=== PATIENT | female | born 1935 | race Caucasian/White ===

== ENCOUNTER 2016-08-25 14:25 | Outpatient (CLI) | payer MEDICARE, OTHER | END 2016-08-25 14:26 | disposition critical access hospital (66) | DX: M25.552 Pain in left hip (principal); M25.562 Pain in left knee; W18.39XA Other fall on same level, initial encounter; Y93.01 Activity, walking, marching and hiking; Y92.480 Sidewalk as the place of occurrence of the external cause | CPT/HCPCS: A0425; A0429 ==

== ENCOUNTER 2016-08-25 14:55 | Inpatient (IN) | payer MEDICARE, OTHER ==
[2016-08-25] MEDS ORDERED: ACETAMINOPHEN 325 MG TABLET PO STA (15:02)
[2016-08-25] MEDS ORDERED: ACETAMINOPHEN 1,000 MG/100 ML 100 ML IV STA (15:05)
[2016-08-25] MEDS ORDERED: ACETAMINOPHEN 325 MG TABLET PO ONE (15:05)
[2016-08-25] MEDS ORDERED: ACETAMINOPHEN 1,000 MG/100 ML 100 ML IV ONE (15:09)
[2016-08-25] MEDS ORDERED: LACTATED RINGERS 1,000 ML IV ONE ×2 (18:03→19:18)
[2016-08-25] MEDS ORDERED: BUPIVACAINE 0.25%-EPI 1:200000 PF 30 ML VIAL SUBQ ONE ×2 (18:54)
[2016-08-25] MEDS ORDERED: LIDOCAINE-MPF 2% 5 ML VIAL IM ONE (19:03)
[2016-08-25] MEDS ORDERED: fentaNYL 100 MCG/2 ML VIAL IVP ONE (19:03)
[2016-08-25] MEDS ORDERED: PHENYLEPHRINE 10 MG/ML VIAL IV ONE (19:03)
[2016-08-25] MEDS ORDERED: PROPOFOL 200 MG/20 ML VIAL IVP ONE (19:03)
[2016-08-25] MEDS ORDERED: ACETAMINOPHEN 1,000 MG/100 ML VIAL IV ONE (19:03)
[2016-08-25] MEDS ORDERED: ceFAZolin 1 GM VIAL IV ONE (19:03)
[2016-08-25] MEDS ORDERED: MIDAZOLAM 2 MG/2 ML VIAL IVP ONE (19:03)
[2016-08-25] MEDS ORDERED: DEXAMETHASONE 4 MG/ML VIAL IVP ONE (19:03)
[2016-08-25] MEDS ORDERED: ONDANSETRON 4 MG/2 ML VIAL IVP ONE (19:03)
[2016-08-25] MEDS ORDERED: ACETAMINOPHEN 1,000 MG/100 ML 100 ML IV PRN (19:54)
[2016-08-25] MEDS ORDERED: MORPHINE 2 MG/ML SYRINGE IVP PRN (19:54)
[2016-08-25] MEDS ORDERED: SODIUM CHLORIDE FLUSH 0.9% 10 ML SYRINGE IVP PRN (19:54)
[2016-08-25] MEDS ORDERED: PROCHLORPERAZINE 10 MG/2 ML VIAL IVP PRN (19:54)
[2016-08-25] MEDS ORDERED: ONDANSETRON 4 MG/2 ML VIAL IVP PRN (19:54)
[2016-08-25] MEDS: SODIUM CHLORIDE 0.9% 1,000 ML IV SCH (20:45)
[2016-08-25] MEDS: NS W/20 MEQ KCL 1,000 ML IV SCH (20:45)
[2016-08-25] MEDS: SODIUM CHLORIDE FLUSH 0.9% 10 ML SYRINGE IVP SCH (20:46)
[2016-08-25] MEDS: ceFAZolin 2 GM/50 ML 50 ML IV SCH (20:55)
[2016-08-25] MEDS: oxyCOD/ACETAMIN 5 MG/325 MG TABLET PO PRN (21:28)
[2016-08-25] MEDS: DOCUSATE SODIUM 100 MG CAPSULE PO PRN (21:29)
[2016-08-26] MEDS: ceFAZolin 2 GM/50 ML 50 ML IV SCH (04:10)
[2016-08-26] MEDS: SODIUM CHLORIDE 0.9% 1,000 ML IV SCH (06:09)
[2016-08-26] MEDS: SODIUM CHLORIDE FLUSH 0.9% 10 ML SYRINGE IVP SCH ×3 (06:09→21:21)
[2016-08-26] MEDS: NS W/20 MEQ KCL 1,000 ML IV SCH ×2 (07:02→09:32)
[2016-08-26] MEDS: ASPIRIN 325 MG TABLET PO SCH ×2 (08:06→18:10)
[2016-08-26] MEDS: oxyCOD/ACETAMIN 5 MG/325 MG TABLET PO PRN ×3 (08:06→21:21)
[2016-08-26] MEDS: TRIAMT/HCTZ 37.5 MG/25 MG CAPSULE PO SCH (09:31)
[2016-08-26] MEDS: amLODIPine 5 MG TABLET PO SCH (09:31)
[2016-08-27] MEDS: ACETAMINOPHEN 325 MG TABLET PO PRN (03:50)
[2016-08-27] MEDS: SODIUM CHLORIDE FLUSH 0.9% 10 ML SYRINGE IVP SCH ×3 (06:12→22:44)
[2016-08-27] MEDS: ASPIRIN 325 MG TABLET PO SCH ×2 (08:14→17:28)
[2016-08-27] MEDS: oxyCOD/ACETAMIN 5 MG/325 MG TABLET PO PRN ×2 (08:15→20:40)
[2016-08-27] MEDS: TRIAMT/HCTZ 37.5 MG/25 MG CAPSULE PO SCH (08:15)
[2016-08-27] MEDS: amLODIPine 5 MG TABLET PO SCH (08:15)
[2016-08-27] MEDS: DOCUSATE SODIUM 100 MG CAPSULE PO PRN (08:16)
[2016-08-27] MEDS: SENNA 8.6 MG TABLET PO PRN (08:16)
[2016-08-27] MEDS: POLYETHYLENE GLYCOL 3350 17 GM PACKET PO SCH (21:27)
[2016-08-28] MEDS: oxyCOD/ACETAMIN 5 MG/325 MG TABLET PO PRN ×3 (04:24→21:35)
[2016-08-28] MEDS: SODIUM CHLORIDE FLUSH 0.9% 10 ML SYRINGE IVP SCH ×3 (06:23→20:36)
[2016-08-28] MEDS: POLYETHYLENE GLYCOL 3350 17 GM PACKET PO SCH (07:44)
[2016-08-28] MEDS: ASPIRIN 325 MG TABLET PO SCH ×2 (07:45→16:51)
[2016-08-28] MEDS: TRIAMT/HCTZ 37.5 MG/25 MG CAPSULE PO SCH (07:46)
[2016-08-28] MEDS: amLODIPine 5 MG TABLET PO SCH (07:46)
[2016-08-28] MEDS: SENNA 8.6 MG TABLET PO PRN ×2 (09:52→20:36)
[2016-08-28] MEDS: DOCUSATE SODIUM 100 MG CAPSULE PO PRN ×2 (09:52→20:36)
[2016-08-28] MEDS: ACETAMINOPHEN 325 MG TABLET PO PRN (12:12)
[2016-08-28] MEDS: LIDOCAINE PATCH 5% TOP PRN (16:51)
[2016-08-29] MEDS: oxyCOD/ACETAMIN 5 MG/325 MG TABLET PO PRN ×3 (05:08→14:37)
[2016-08-29] MEDS: SODIUM CHLORIDE FLUSH 0.9% 10 ML SYRINGE IVP SCH ×2 (06:26→14:38)
[2016-08-29] MEDS: ASPIRIN 325 MG TABLET PO SCH (08:42)
[2016-08-29] MEDS: POLYETHYLENE GLYCOL 3350 17 GM PACKET PO SCH (08:42)
[2016-08-29] MEDS: TRIAMT/HCTZ 37.5 MG/25 MG CAPSULE PO SCH (08:43)
[2016-08-29] MEDS: amLODIPine 5 MG TABLET PO SCH (08:45)
[2016-08-29] MEDS: LIDOCAINE PATCH 5% TOP PRN (08:57)
== END 2016-08-29 15:34 | DRG 482 ==
PROC: 0QS734Z Reposition Left Upper Femur with Internal Fixation Device, Percutaneous Approach (ICD-10-PCS; principal; 2016-08-25 18:00)
DX: S72.012A Unspecified intracapsular fracture of left femur, initial encounter for closed fracture (principal); W18.39XA Other fall on same level, initial encounter; Y92.480 Sidewalk as the place of occurrence of the external cause; R94.31 Abnormal electrocardiogram [ECG] [EKG]; W18.30XA Fall on same level, unspecified, initial encounter; I10 Essential (primary) hypertension

== ENCOUNTER 2018-02-06 11:40 | Emergency (ER) | payer MEDICARE, OTHER ==
[2018-02-06 12:10] VITALS: BP 129/73
== END 2018-02-06 13:18 | disposition left against medical advice (07) ==
LOC: ED 11:40
DX: Z53.21 Procedure and treatment not carried out due to patient leaving prior to being seen by health care provider (principal)

== ENCOUNTER 2018-06-25 18:13 | Outpatient (CLI) | payer MEDICARE, OTHER | END 2018-06-25 18:14 | disposition EMS.NT | LOC: EMS 18:13 | PROVIDERS: ATTEND Surgery | DX: M25.551 Pain in right hip (principal) ==

== ENCOUNTER 2018-06-26 10:34 | Emergency (ER) | payer MEDICARE, OTHER ==
[2018-06-26 11:14] LABS: BASOPHILS # (AUTO) 0.2 10^3/uL (0.0-0.1); BASOPHILS % (AUTO) 1.6 %; EOSINOPHILS % (AUTO) 0.3 %; LYMPHOCYTES # (AUTO) 0.7 10^3/uL (1.5-3.5); LYMPHOCYTES % (AUTO) 6.4 %; MEAN CORPUSCULAR HEMOGLOBIN 33.3 pg (27.0-31.0); MEAN CORPUSCULAR HGB CONC 36.1 g/dL (32.0-36.0); MEAN CORPUSCULAR VOLUME 92.2 fL (81.0-99.0); MEAN PLATELET VOLUME 6.6 fL (7.9-10.8); MONOCYTES # (AUTO) 1.2 10^3/uL (0.0-1.0); MONOCYTES % (AUTO) 10.9 %; NEUTROPHILS % (AUTO) 80.8 %; PLT - PLATELET COUNT 216 10^3/uL (130-450); RED BLOOD COUNT 5.11 10^6/uL (4.20-5.40); RED CELL DISTRIBUTION WIDTH 14.1 % (12.0-15.0); WHITE BLOOD COUNT 11.1 x10^3/uL (4.8-10.8)
[2018-06-26 11:31] LABS: CREATINE KINASE MB 11.4 ng/mL (0.6-6.3)
[2018-06-26 11:33] LABS: ACETAMINOPHEN < 10 ug/mL (10-30); ALBUMIN 3.7 g/dL (3.2-5.5); ALBUMIN/GLOBULIN RATIO 1.1 (1.0-2.2); ALKALINE PHOSPHATASE 67 IU/L (42-121); ALT ALANINE AMINOTRANSFERASE 24 IU/L (10-60); AST ASPARTATE AMINOTRANSFERASE 60 IU/L (10-42); BILIRUBIN,TOTAL 3.5 mg/dL (0.2-1.0); BUN - BLOOD UREA NITROGEN 27 mg/dL (6-20); CALCIUM 9.1 mg/dL (8.5-10.3); CARBON DIOXIDE - CO2 28 mmol/L (21-32); CHLORIDE 96 mmol/L (101-111); CREATININE 1.1 mg/dL (0.4-1.0); GFR - MDRD 48 (>89); GLUCOSE 90 mg/dL (70-100); LIPASE 30 U/L (22-51); SALICYLATE < 6.0 mg/dL; SODIUM 136 mmol/L (135-145); TOTAL PROTEIN 7.1 g/dL (6.7-8.2)
[2018-06-26 11:35] LABS: TROPONIN I 0.52 ng/mL (<0.49)
--- NOTE | 2018-06-26 11:43 | XRAY Report ---
Reason: fall, injury Procedure Date: 06/26/2018 Accession Number: [id number] / [id number] Procedure: XR - Pelvis 1 View CPT Code: FULL RESULT: EXAM: PELVIS RADIOGRAPHY EXAM DATE: 06/26/2018 11:27 AM. CLINICAL HISTORY: Fall, injury. COMPARISON: HIP 2 VIEW LT 10/11/2016 10:51 AM HIP 1 VIEW LT 08/25/2016 3:36 PM HIP 2 VIEW LT 09/12/2016 10:33 AM PELVIS 1 VIEW 12/20/2014 3:05 PM. TECHNIQUE: 1 view. FINDINGS: Bones: Diffusely demineralized. There are 3 lag screws in the left proximal femur, as seen on the prior exam. There is a healed left subcapital femoral neck fracture. There is no cortical or at the superior margin of the body of the right pubic symphysis, not seen on prior exams. This raises the possibility of an acute nondisplaced fracture of the right pubic bone. The remainder of the bones appear intact. No bone lesions. Joints: There are mild degenerative changes of the bilateral hips, bilateral sacroiliac joints, and pubic symphysis. Soft Tissues: There are surgical clips in the left side of the pelvis. No soft tissue swelling. IMPRESSION: 1. Findings suspicious for an acute nondisplaced fracture of the right pubic bone. 2. Evidence of prior left subcapital femoral neck fracture post ORIF. 3. Bones are diffusely demineralized. 4. Mild degenerative changes of the bilateral hips, sacroiliac joints, and pubic symphysis. Note: Osteopenia can limit detection of trabecular fracture. RADIA
--- NOTE | 2018-06-26 11:50 | CT Report ---
Reason: fall, ams Procedure Date: 06/26/2018 Accession Number: [id number] / [id number] Procedure: CT - Head W/O CPT Code: FULL RESULT: EXAM: CT HEAD EXAM DATE: 06/26/2018 11:36 AM. CLINICAL HISTORY: Fall, altered mental status. COMPARISON: CERVICAL SPINE W/O 06/26/2018 11:27 AM. TECHNIQUE: Multiaxial CT images were obtained from the foramen magnum to the vertex. Reformats: Sagittal and coronal. IV contrast: None. In accordance with CT protocol optimization, one or more of the following dose reduction techniques were utilized for this exam: automated exposure control, adjustment of mA and/or KV based on patient size, or use of iterative reconstructive technique. FINDINGS: Parenchyma: No intraparenchymal hemorrhage. No evidence of mass, midline shift, or CT findings of acute infarction. Castro-white differentiation is distinct. Diffuse chronic microangiopathic white matter changes are evident. Extraaxial Spaces: Normal for age. No subdural or epidural collections identified. Ventricles: The ventricles and cortical sulci are enlarged, consistent with age-related tissue loss. Sinuses and orbits: Imaged paranasal sinuses, orbits, and mastoids show no significant abnormality. Bones: No evidence of fracture or calvarial defect. Other: None. IMPRESSION: Generalized age-related cortical atrophic changes without evidence of acute intracranial abnormality. No intracranial hemorrhage. RAD[facility]
[2018-06-26 11:51] LABS: MUDS CUTOFF CONCENTRATIONS CUTOFF CONC BELOW:
[2018-06-26 11:52] LABS: PLATELET ESTIMATE, MANUAL NORMAL (130-450,000) (NORMAL); PLATELET MORPHOLOGY NORMAL APPEARANCE (NORMAL); RBC MORPHOLOGY (MULTIPLE) NORMAL APPEARANCE (NORMAL)
[2018-06-26 11:53] LABS: DIFFERENTIAL COMMENT MANUAL=AUTO DIFF
--- NOTE | 2018-06-26 11:53 | XRAY Report ---
Reason: fall, ams Procedure Date: 06/26/2018 Accession Number: [id number] / [id number] Procedure: XR - Chest 2 View X-Ray CPT Code: 86702 FULL RESULT: EXAM: CHEST RADIOGRAPHY EXAM DATE: 06/26/2018 11:27 AM. CLINICAL HISTORY: Fall, ams. COMPARISON: 04/27/2008 chest x-ray, lumbar spine imaging a 10-15 TECHNIQUE: 2 views. FINDINGS: Lungs/Pleura: No focal opacities evident. No pleural effusion. No pneumothorax. Mediastinum: Heart and mediastinal contours are unremarkable. Other: Surgical clips left axilla. Fractures left eighth and ninth lateral ribs, likely acute. Other fractures could also be present. Compression deformity of T12, similar to 12/20/2014. IMPRESSION: Clear lungs. Left eighth and ninth lateral rib fractures, likely acute. Old compression deformity of T12. RAD[facility]
--- NOTE | 2018-06-26 11:55 | CT Report ---
Reason: fall, ams Procedure Date: 06/26/2018 Accession Number: [id number] / [id number] Procedure: CT - Cervical Spine W/O CPT Code: FULL RESULT: EXAM: CT CERVICAL SPINE WITHOUT CONTRAST DATE: 06/26/2018 11:36 AM. HISTORY: Fall, altered mental status. COMPARISONS: HEAD W/O 06/26/2018 11:27 AM. TECHNIQUE: Thin-section axial images were acquired of the cervical spine without contrast. Post-processing: Coronal and sagittal reformats. Other: None. In accordance with CT protocol optimization, one or more of the following dose reduction techniques were utilized for this exam: automated exposure control, adjustment of mA and/or KV based on patient size, or use of iterative reconstructive technique. FINDINGS: Alignment: There is straightening of normal cervical lordosis. No scoliosis or spondylolisthesis. Bones: No fracture or bone lesion. Interspace Levels/Facets: There are moderate to severe multilevel degenerative disk changes of the cervical spine. There are mild to moderate degenerative changes of the bilateral facets. There is mild central canal narrowing at the C4-C5, C5-C6, and C6-C7 levels. Musculature: Normal. No fatty atrophy. Other: The paravertebral and prevertebral soft tissues are unremarkable. The lung apices are clear. IMPRESSION: 1. No fracture or other acute osseous abnormality of the cervical spine. 2. Moderate to severe degenerative changes of the cervical spine. There is mild central canal narrowing at multiple levels. RAD[facility]
[2018-06-26 11:56] LABS: BILIRUBIN,URINE NEGATIVE (NEGATIVE); GLUCOSE, URINE (UA) NEGATIVE (NEGATIVE); KETONES,URINE (UA) NEGATIVE (NEGATIVE); LEUKOCYTE ESTERASE, URINE SMALL (NEGATIVE); NITRITE,URINE POSITIVE (NEGATIVE); OCCULT BLOOD,URINE SMALL (NEGATIVE); PROTEIN,URINE NEGATIVE (NEGATIVE); UROBILINOGEN,URINE 0.2 (NORMAL) E.U./dL (NORMAL)
--- NOTE | 2018-06-26 12:03 | ED Physician Documentation ---
History of Present Illness - Stated complaint Stated Complaint: GLF - Chief complaint Chief Complaint: Trauma Ext - Additonal information Additional information: 83-year-old female was brought to the emergency department for Evaluation after a fall. The patient has cognitive impairment and lives alone but has individual check on her. Today EMS was called because of concern for the patient. EMS found the patient on the ground and it is unclear as to how long the patient was on the ground for. The patient is unable to provide any account as to what happened before or after the fall. The patient has no focal area of pain presently. 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 HEENT: Tonsil/Adenoidectomy - Present Medications Home Medications: Ambulatory Orders Medication Instructions Recorded Confirmed Triamterene/Hydrochlorothiazid 1 tab PO DAILY 08/25/16 08/26/16 [Triamterene-Hctz 75-50 mg Tab] amLODIPine [Norvasc] 5 mg PO DAILY 08/25/16 08/26/16 Aspirin [Alfred] 325 mg PO ONCE #30 tablet 08/28/16 - Allergies Allergies/Adverse Reactions: Allergies Allergy/AdvReac Type Severity Reaction Status Date / Time No Known Drug Allergies Allergy Verified 02/06/18 12:10 - Social History Does the pt smoke?: No Smoking Status: Never smoker Does the pt drink ETOH?: Yes PD ED PE NORMAL - General General: Other (The patient's alert, cooperative but significantly confused which appears to be close to her baseline) - HEENT HEENT: PERRL, EOMI, Ears normal, Moist mucous membranes. No: Atraumatic (The patient has no obvious deformities but is tender in her scalp and no lacerations) - Cardiac Cardiac: RRR, Strong equal pulses - Respiratory Respiratory: No respiratory distress, Clear bilaterally - Abdomen Abdomen: Soft, Non tender - Derm Derm: Normal color - Extremities Extremities: No deformity, No tenderness to palpate, Normal ROM s pain - Neuro Neuro: Other (The patient's alert, cooperative moving all 4 extremities and has no focal deficit) - Psych Psych: Normal mood Results - Vitals Vitals: Vital Signs - 24 hr 06/26/18 06/26/18 06/26/18 10:35 11:49 13:55 Temperature 36.3 C L Heart Rate 80 86 108 H Respiratory 18 23 18 Rate Blood Pressure 133/97 H 110/59 L 108/65 O2 Saturation 100 96 92 Oxygen O2 Source [With Activity] Room air O2 Source Room air - EKG (time done) 10:54 Rate: Rate (enter#) Rhythm: Sinus tachycardia Intervals: Normal OR, QRS normal QRS: Normal Ischemia: Non specific changes - Labs Labs: Laboratory Tests 06/26/18 06/26/18 06/26/18 10:52 11:03 11:03 WBC 11.1 H RBC 5.11 Hgb 17.0 H Hct 47.1 H MCV 92.2 MCH 33.3 H MCHC 36.1 H RDW 14.1 Plt Count 216 MPV 6.6 L Neut # (Auto) 9.0 H Lymph # (Auto) 0.7 L [place] # (Auto) 1.2 H Eos # (Auto) 0.0 Baso # (Auto) 0.2 H Absolute Nucleated RBC 0.07 Band Neuts % (Manual) Not Reportable Abnorm Lymph % (Manual) Not Reportable Nucleated RBC % 0.6 Neutrophils # (Manual) Not Reportable Lymphocytes # (Manual) Not Reportable Monocytes # (Manual) Not Reportable Eosinophils # (Manual) Not Reportable Basophils # (Manual) Not Reportable Differential Comment MANUAL=AUTO DIFF WBC Morphology TOXIC GRANULATION Platelet Estimate NORMAL (130-450,000) Platelet Morphology NORMAL APPEARANCE RBC Morph Micro Appear NORMAL APPEARANCE Sodium 136 Potassium 3.0 L Chloride 96 L Carbon Dioxide 28 Anion Gap 12.0 BUN 27 H Creatinine 1.1 H Estimated GFR (MDRD) 48 L Glucose 90 Calcium 9.1 Total Bilirubin 3.5 H AST 60 H ALT 24 Alkaline Phosphatase 67 Total Creatine Kinase CK-MB (CK-2) 11.4 H Troponin I 0.52 H* Total Protein 7.1 Albumin 3.7 Globulin 3.4 Albumin/Globulin Ratio 1.1 Lipase 30 Urine Color Urine Clarity Urine pH Ur Specific [place] Urine Protein Urine Glucose (UA) Urine Ketones Urine Occult Blood Urine Nitrite Urine Bilirubin Urine Urobilinogen Ur Leukocyte Esterase Urine RBC Urine WBC Ur Squamous Epith Cells Urine Bacteria Ur Microscopic Review Urine Culture Comments Salicylates < 6.0 Urine Opiates Screen Ur Oxycodone Screen Urine Methadone Screen Ur Propoxyphene Screen Acetaminophen < 10 L Ur Barbiturates Screen Ur Tricyclics Screen Ur Phencyclidine Scrn Ur Amphetamine Screen U Methamphetamines Scrn U Benzodiazepines Scrn Urine Cocaine Screen U Cannabinoids Screen Ethyl Alcohol < 5.0 06/26/18 06/26/18 11:03 11:40 WBC RBC Hgb Hct MCV MCH MCHC RDW Plt Count MPV Neut # (Auto) Lymph # (Auto) [place] # (Auto) Eos # (Auto) Baso # (Auto) Absolute Nucleated RBC Band Neuts % (Manual) Abnorm Lymph % (Manual) Nucleated RBC % Neutrophils # (Manual) Lymphocytes # (Manual) Monocytes # (Manual) Eosinophils # (Manual) Basophils # (Manual) Differential Comment WBC Morphology Platelet Estimate Platelet Morphology RBC Morph Micro Appear Sodium Potassium Chloride Carbon Dioxide Anion Gap BUN Creatinine Estimated GFR (MDRD) Glucose Calcium Total Bilirubin AST ALT Alkaline Phosphatase Total Creatine Kinase 1023 H* CK-MB (CK-2) Troponin I Total Protein Albumin Globulin Albumin/Globulin Ratio Lipase Urine Color YELLOW Urine Clarity HAZY Urine pH 7.0 Ur Specific [place] 1.015 Urine Protein NEGATIVE Urine Glucose (UA) NEGATIVE Urine Ketones NEGATIVE Urine Occult Blood SMALL H Urine Nitrite POSITIVE H Urine Bilirubin NEGATIVE Urine Urobilinogen 0.2 (NORMAL) Ur Leukocyte Esterase SMALL H Urine RBC 6-10 H Urine WBC >25 H Ur Squamous Epith Cells FEW Squamous Urine Bacteria Moderate H Ur Microscopic Review INDICATED Urine Culture Comments INDICATED Salicylates Urine Opiates Screen NEGATIVE Ur Oxycodone Screen NEGATIVE Urine Methadone Screen NEGATIVE Ur Propoxyphene Screen NEGATIVE Acetaminophen Ur Barbiturates Screen NEGATIVE Ur Tricyclics Screen NEGATIVE Ur Phencyclidine Scrn NEGATIVE Ur Amphetamine Screen NEGATIVE U Methamphetamines Scrn NEGATIVE U Benzodiazepines Scrn NEGATIVE Urine Cocaine Screen NEGATIVE U Cannabinoids Screen NEGATIVE Ethyl Alcohol - Rads (name of study) CT head/neck Radiology: Final report received, See rad report (no ich or fx) XR pelvis Radiology: Final report received, See rad report CXR Radiology: Final report received, See rad report PD MEDICAL DECISION MAKING - ED course ED course: The patient has multiple acute issues, but given the fact that the patient rules in for a NSTEMI she will require Transfer to a higher level of care for further workup and management. The findings and plan were discussed with the family who understands and agrees to the plan. The case was discussed with the radiological equipment specialist at [facility] who agrees with the plan. The case was discussed with the hospitalist at [facility] who accepts the patient onto her service Departure - Departure Disposition: 02 Transfer Acute Care Hosp Clinical Impression: NSTEMI (non-ST elevated myocardial infarction), Acute renal injury, Dehydration Rhabdomyolysis Qualifiers: Rhabdomyolysis type: non-traumatic Qualified Code(s): M62.82 - Rhabdomyolysis UTI (urinary tract infection) Qualifiers: Urinary tract infection type: site unspecified Hematuria presence: without hematuria Qualified Code(s): N39.0 - Urinary tract infection, site not specified Head injury Qualifiers: Encounter type: initial encounter Qualified Code(s): S09.90XA - Unspecified injury of head, initial encounter Condition: Fair
[2018-06-26 12:06] LABS: CLARITY,URINE HAZY (CLEAR)
[2018-06-26 12:07] LABS: BACTERIA,URINE Moderate /HPF (None Seen); SQUAMOUS EPITHELIAL CELL,UR FEW Squamous (<= Few)
[2018-06-26 12:11] LABS: AMPHETAMINE SCREEN,URINE NEGATIVE (NEGATIVE); BENZODIAZEPINES SCREEN, URINE NEGATIVE (NEGATIVE); COCAINE SCREEN URINE NEGATIVE (NEGATIVE); METHADONE SCREEN, URINE NEGATIVE (NEGATIVE); METHAMPHETAMINES SCREEN, URINE NEGATIVE (NEGATIVE); OPIATE SCREEN, URINE NEGATIVE (NEGATIVE); OXYCODONE SCREEN, URINE NEGATIVE (NEGATIVE); PROPOXYPHENE SCREEN, URINE NEGATIVE (NEGATIVE); TRICYCLIC ANTIDEPRESSANT,URINE NEGATIVE (NEGATIVE)
[2018-06-26] MEDS ORDERED: cefTRIAXone 1 GM in SODIUM CHLORIDE 0.9% MINIBAG 100 ML IV STA (13:16)
[2018-06-26] MEDS ORDERED: SODIUM CHLORIDE 0.9% 1,000 ML IV ONE (13:16)
[2018-06-26 16:07] VITALS: BP 132/65
== END 2018-06-26 15:37 | disposition short-term general hospital (02) ==
LOC: ED 10:34
DX: I21.4 Non-ST elevation (NSTEMI) myocardial infarction (principal); E86.0 Dehydration; N17.9 Acute kidney failure, unspecified; M62.82 Rhabdomyolysis; N39.0 Urinary tract infection, site not specified; S09.90XA Unspecified injury of head, initial encounter; W19.XXXA Unspecified fall, initial encounter; Y92.009 Unspecified place in unspecified non-institutional (private) residence as the place of occurrence of the external cause; I45.81 Long QT syndrome; R00.0 Tachycardia, unspecified; I10 Essential (primary) hypertension; E78.00 Pure hypercholesterolemia, unspecified; G31.84 Mild cognitive impairment of uncertain or unknown etiology
CPT/HCPCS: 36415; 70450; 71046; 72125; 72170; 80053; 80306; 80307; 80320; 80329; 81001; 81003; 82550; 82553; 83690; 84484; 85025; 87086; 87181; 93005; 96361; 96365; 99284; 99285

== ENCOUNTER 2018-09-04 15:07 | Emergency (ER) | payer MEDICARE, OTHER ==
--- NOTE | 2018-09-04 15:46 | ED Physician Documentation ---
PD HPI Fall - Stated complaint Stated Complaint: GLF FALL - Chief complaint Chief Complaint: Trauma Ext - History obtained from History obtained from: Patient, Family (daughter) - History of Present Illness Mechanism of injury: Unknown Fall distance: Standing position Where injury occurred: Home Timing - onset: Today Injury(ies) location: Left Uppper Extremity Associated symptoms: No: Neck pain, Weakness Worsens with: Movement, Palpation Similar symptoms before: Has not had sx before - Additional information Additional information: The patient is an 83-year-old female with history of dementia who presents with left elbow pain after falling when walking to the mailbox this morning. History is obtained from her daughter because the patient does not recall the incident. She was walking to the mailbox using her cane, when her neighbor saw her fall. The patient told her neighbor that she had felt dizzy and blacked out when she fell. The neighbor helped her to the house and then called the patient's daughter. She has been ambulatory since the incident occurred, but complains of pain in her left upper extremity. There has been no change in her speech. She denies chest pain, shortness of breath, or headache. She has history of similar episode 2 or 3 years ago with a urinary tract infection.. She is not on blood thinner medication except for a daily aspirin. Review of Systems Constitutional: denies: Fever Eyes: denies: Decreased vision Ears: denies: Tinnitus/ringing Nose: denies: Congestion Throat: denies: Sore throat Cardiac: denies: Chest pain / pressure, Palpitations Respiratory: denies: Dyspnea, Cough GI: denies: Abdominal Pain, Nausea, Vomiting : denies: Dysuria Skin: denies: Rash, Abrasion (s) Musculoskeletal: reports: Extremity pain (Left upper extremity.). denies: Neck pain, Back pain Neurologic: reports: Generalized weakness. 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 HEENT: Tonsil/Adenoidectomy - Present Medications Home Medications: Ambulatory Orders Medication Instructions Recorded Confirmed amLODIPine [Norvasc] 5 mg PO DAILY 08/25/16 09/04/18 Aspirin [Alfred] 325 mg PO ONCE #30 tablet 08/28/16 09/04/18 Lisinopril 09/04/18 Potassium Chloride [K-Dur] 20 meq PO BID #20 tablet 09/04/18 - Allergies Allergies/Adverse Reactions: Allergies Allergy/AdvReac Type Severity Reaction Status Date / Time No Known Drug Allergies Allergy Verified 02/06/18 12:10 - Social History Does the pt smoke?: No Smoking Status: Never smoker Does the pt drink ETOH?: Yes Does the pt have substance abuse?: No - Immunizations Immunizations are current?: Yes - POLST Patient has POLST: Yes PD ED PE NORMAL - Vitals Vital signs reviewed: Yes (hypertensive) - General General: Alert and oriented X 3, Well developed/nourished - HEENT HEENT: Atraumatic, EOMI, Pharynx benign - Neck Neck: No bony TTP, No adenopathy, No JVD, Other (Full cervical range of motion, without tenderness.) - Cardiac Cardiac: RRR, No murmur - Respiratory Respiratory: No respiratory distress, Clear bilaterally - Abdomen Abdomen: Soft, Non tender - Back Back: No CVA TTP, No spinal TTP - Derm Derm: No rash - Extremities Extremities: No calf tenderness / cord, Other (Bilateral lower extremity lymphedema. No calf tenderness. Tenderness to palpation at the left elbow on the lateral aspect predominantly. No tenderness to palpation over the proximal humerus or the distal forearm. Distal neurovascular is intact.) - Neuro Neuro: Alert and oriented X 3, No motor deficit, No sensory deficit Eye Opening: Spontaneous Motor: Obeys Commands Verbal: Confused (consistent with dementia) GCS Score: 14 Results - Vitals Vitals: Vital Signs - 24 hr 09/04/18 09/04/18 09/04/18 15:15 17:19 17:24 Temperature 36.3 C L Heart Rate 81 76 Respiratory 17 19 18 Rate Blood Pressure 166/98 H 187/86 H O2 Saturation 97 98 09/04/18 18:36 Temperature Heart Rate 72 Respiratory 18 Rate Blood Pressure 148/78 H O2 Saturation 98 Oxygen O2 Source [] Room air O2 Source Room air - EKG (time done) 15:25 Rate: Rate (enter#) (78) Rhythm: NSR, Other (supraventricular bigeminy.) Java: Normal Intervals: Normal [place] Ischemia: Normal ST segments, Q waves (in leads III and aVF, consistent with old inferior UT.) Compare to prior EKG: Unchanged from prior EKG Computer interpretation: Agree with computer - Labs Labs: Laboratory Tests 09/04/18 09/04/18 09/04/18 15:32 16:10 16:10 WBC 8.8 RBC 5.61 H Hgb 18.2 H Hct 54.4 H MCV 97.1 MCH 32.5 H MCHC 33.5 RDW 14.3 Plt Count 261 MPV 7.1 L Neut # (Auto) 6.9 H Lymph # (Auto) 0.7 L [place] # (Auto) 1.1 H Eos # (Auto) 0.0 Baso # (Auto) 0.1 Absolute Nucleated RBC 0.01 Nucleated RBC % 0.1 Sodium 136 Potassium 2.9 L Chloride 96 L Carbon Dioxide 28 Anion Gap 12.0 BUN 10 Creatinine 0.6 Estimated GFR (MDRD) 96 Glucose 124 H POC Whole Bld Glucose 135 H Lactic Acid Calcium 9.3 Total Bilirubin 2.6 H AST 32 ALT 21 Alkaline Phosphatase 83 Total Protein 7.8 Albumin 4.0 Globulin 3.8 Albumin/Globulin Ratio 1.1 Lipase 33 Urine Color Urine Clarity Urine pH Ur Specific [place] Urine Protein Urine Glucose (UA) Urine Ketones Urine Occult Blood Urine Nitrite Urine Bilirubin Urine Urobilinogen Ur Leukocyte Esterase Urine RBC Urine WBC Ur Epithelial Cells Ur Squamous Epith Cells Urine Bacteria Urine Mucus Ur Microscopic Review Urine Culture Comments 09/04/18 09/04/18 16:10 17:55 WBC RBC Hgb Hct MCV MCH MCHC RDW Plt Count MPV Neut # (Auto) Lymph # (Auto) [place] # (Auto) Eos # (Auto) Baso # (Auto) Absolute Nucleated RBC Nucleated RBC % Sodium Potassium Chloride Carbon Dioxide Anion Gap BUN Creatinine Estimated GFR (MDRD) Glucose POC Whole Bld Glucose Lactic Acid 1.7 Calcium Total Bilirubin AST ALT Alkaline Phosphatase Total Protein Albumin Globulin Albumin/Globulin Ratio Lipase Urine Color YELLOW Urine Clarity CLEAR Urine pH 7.5 Ur Specific [place] 1.010 Urine Protein TRACE Urine Glucose (UA) NEGATIVE Urine Ketones TRACE Urine Occult Blood SMALL H Urine Nitrite NEGATIVE Urine Bilirubin NEGATIVE Urine Urobilinogen 1 (NORMAL) Ur Leukocyte Esterase NEGATIVE Urine RBC 0-5 Urine WBC 0-3 Ur Epithelial Cells FEW Transitional Ur Squamous Epith Cells FEW Squamous Urine Bacteria None Seen Urine Mucus Moderate Strands Ur Microscopic Review INDICATED Urine Culture Comments NOT INDICATED - Rads (name of study) left elbow Radiology: Prelim report reviewed, EMP read contemporaneously, See rad report (Positive for an elbow joint effusion without a visualized definite acute fracture. Chronic changes with multiple periarticular ossifications, indicating old injury or chronic degenerative process.) PD MEDICAL DECISION MAKING - ED course Complexity details: reviewed old records, reviewed results, re-evaluated patient, considered differential, d/w patient, d/w family ED course: The cause for the patient's fall is uncertain at this time. It is unclear whe ther she stumbled and fell, which is quite likely given that she does not use her walker when ambulating outdoors. While there is no evidence of acute ischemic cardiac abnormality or dysrhythmia currently, the possibility of rhythm disturbance preceding her fall remains in the differential. Her presentation does not suggest an acute neurologic deficit or pulmonary embolus. Injury from the fall includes contusion to the left elbow. She has a remote history of significant elbow fracture as a teenager, and her x-ray reveals evidence of the old injury, without acute bony abnormality detected. Her laboratory evaluation reveals low potassium of 2.9, and elevated bilirubin of 2.6. Her urinalysis is negative. Treatment in the emergency department included administration of potassium 20 mEq orally and 10 mEq IV. She demonstrated the ability to ambulate in the emergency department without lightheadedness, and demonstrating her baseline level of stability. She is being discharged with a prescription for supplemental potassium. I discussed with her and her daughter the results of her workup, the importance of outpatient follow-up for recheck of her potassium level, as well as potentially worrisome signs or symptoms that should prompt reevaluation in the emergency department. Departure - Departure Disposition: 01 Home, Self Care Clinical Impression: Hypokalemia Fall Qualifiers: Encounter type: initial encounter Qualified Code(s): W19.XXXA - Unspecified fall, initial encounter Contusion of left elbow Qualifiers: Encounter type: initial encounter Qualified Code(s): S50.02XA - Contusion of left elbow, initial encounter Dementia Qualifiers: Dementia type: unspecified type Dementia behavioral disturbance: without behavioral disturbance Qualified Code(s): F03.90 - Unspecified dementia without behavioral disturbance Condition: Stable Instructions: ED Contusion Elbow, ED Potassium Deficiency Follow-Up: Rodriguez,Jayashree A, PA [Primary Care Provider] - Prescriptions: Potassium Chloride [K-Dur] 20 meq PO BID #20 tablet Comments: Take potassium twice daily as prescribed. Wear the arm sling if it provides comfort. Use your walker when walking. Follow-up with your primary physician within 1 week. She will likely want to recheck your potassium level. Return to the emergency department if you develop recurrent falling episodes, or otherwise worsening symptoms. Discharge Date/Time: 09/04/18 18:37
[2018-09-04 16:17] LABS: BASOPHILS # (AUTO) 0.1 10^3/uL (0.0-0.1); BASOPHILS % (AUTO) 1.1 %; EOSINOPHILS % (AUTO) 0.1 %; HGB - HEMOGLOBIN 18.2 g/dL (12.0-16.0); LYMPHOCYTES # (AUTO) 0.7 10^3/uL (1.5-3.5); LYMPHOCYTES % (AUTO) 7.8 %; MEAN CORPUSCULAR HEMOGLOBIN 32.5 pg (27.0-31.0); MEAN CORPUSCULAR HGB CONC 33.5 g/dL (32.0-36.0); MEAN CORPUSCULAR VOLUME 97.1 fL (81.0-99.0); MEAN PLATELET VOLUME 7.1 fL (7.9-10.8); MONOCYTES # (AUTO) 1.1 10^3/uL (0.0-1.0); MONOCYTES % (AUTO) 12.8 %; NEUTROPHILS # (AUTO) 6.9 10^3/uL (1.5-6.6); NEUTROPHILS % (AUTO) 78.2 %; PLT - PLATELET COUNT 261 10^3/uL (130-450); RED BLOOD COUNT 5.61 10^6/uL (4.20-5.40); RED CELL DISTRIBUTION WIDTH 14.3 % (12.0-15.0); WHITE BLOOD COUNT 8.8 x10^3/uL (4.8-10.8)
--- NOTE | 2018-09-04 16:28 | XRAY Report ---
Reason: left elbow injury Procedure Date: 09/04/2018 Accession Number: [id number] / [id number] Procedure: XR - Elbow 3 View LT CPT Code: FULL RESULT: EXAM: LEFT ELBOW RADIOGRAPHY EXAM DATE: 09/04/2018 04:08 PM. CLINICAL HISTORY: Left elbow injury. COMPARISON: None. TECHNIQUE: 4 views. FINDINGS: Bones: There are multiple corticated ossifications around the elbow. There is a corticated 25 x 14 mm ossification at the medial epicondyle and a smaller ossification in the lateral epicondyle. There is an ossification near the proximal olecranon which appears corticated. No definite acute fracture. Joints: Alignment appears satisfactory. There is a posterior fat pad at the elbow on lateral. Soft Tissues: Otherwise unremarkable. IMPRESSION: 1. Positive for an elbow joint effusion without a visualized definite acute fracture. 2. Chronic changes with multiple periarticular ossifications, indicating old injury or chronic degenerative process. RADIA
[2018-09-04 16:29] LABS: ALBUMIN/GLOBULIN RATIO 1.1 (1.0-2.2); BILIRUBIN,TOTAL 2.6 mg/dL (0.2-1.0); CALCIUM 9.3 mg/dL (8.5-10.3); CREATININE 0.6 mg/dL (0.4-1.0); TOTAL PROTEIN 7.8 g/dL (6.7-8.2)
[2018-09-04] MEDS ORDERED: POTASSIUM CHLOR 10 MEQ/100 ML 10 MEQ/100 ML BAG IV ONE (16:49)
[2018-09-04] MEDS ORDERED: POTASSIUM CHLORIDE 20 MEQ TABLET PO STA (16:49)
[2018-09-04 18:00] LABS: BILIRUBIN,URINE NEGATIVE (NEGATIVE); GLUCOSE, URINE (UA) NEGATIVE (NEGATIVE); KETONES,URINE (UA) TRACE mg/dL (NEGATIVE); LEUKOCYTE ESTERASE, URINE NEGATIVE (NEGATIVE); NITRITE,URINE NEGATIVE (NEGATIVE); OCCULT BLOOD,URINE SMALL (NEGATIVE); PH,URINE 7.5 PH (5.0-7.5); PROTEIN,URINE TRACE mg/dL (NEGATIVE); UROBILINOGEN,URINE 1 (NORMAL) E.U./dL (NORMAL)
[2018-09-04 18:02] LABS: CLARITY,URINE CLEAR (CLEAR)
[2018-09-04 18:09] LABS: BACTERIA,URINE None Seen /HPF (None Seen); EPITHELIAL CELLS,UR FEW Transitional /HPF (<= Few); MUCUS,URINE Moderate Strands; RBC,URINE 0-5 /HPF (0-5); SQUAMOUS EPITHELIAL CELL,UR FEW Squamous (<= Few)
[2018-09-04 18:37] VITALS: BP 148/78
== END 2018-09-04 18:37 | disposition home or self-care (01) ==
LOC: ED 15:07
DX: S50.02XA Contusion of left elbow, initial encounter (principal); W18.30XA Fall on same level, unspecified, initial encounter; Y93.01 Activity, walking, marching and hiking; Y92.008 Other place in unspecified non-institutional (private) residence as the place of occurrence of the external cause; E87.6 Hypokalemia; F03.90 Unspecified dementia, unspecified severity, without behavioral disturbance, psychotic disturbance, mood disturbance, and anxiety; R94.31 Abnormal electrocardiogram [ECG] [EKG]; R79.89 Other specified abnormal findings of blood chemistry; I10 Essential (primary) hypertension; E78.00 Pure hypercholesterolemia, unspecified; Z79.82 Long term (current) use of aspirin
CPT/HCPCS: 36415; 73080; 80053; 81001; 83605; 83690; 85025; 93005; 96365; 99283; A9270; 81003; 87086

== ENCOUNTER 2019-03-18 09:20 | Outpatient (CLI) | payer MEDICARE, OTHER | END 2019-03-18 09:21 | disposition critical access hospital (66) | LOC: EMS 09:20 | PROVIDERS: ATTEND Surgery | DX: R07.9 Chest pain, unspecified (principal) | CPT/HCPCS: A0425; A0429 ==

== ENCOUNTER 2019-03-18 09:46 | Emergency (ER) | payer MEDICARE, OTHER ==
--- NOTE | 2019-03-18 09:58 | ED Physician Documentation ---
History of Present Illness - Stated complaint Stated Complaint: CP - Additonal information Additional information: This is an 83-year-old female with a history of alcohol use, hypertension, who presents with now resolved chest pain. She is coming in from [place]. She began developing some chest pain at breakfast this morning, supposedly it radiated to her right shoulder. This resolved after an unclear number of minutes, when EMS arrived she is no longer having the pain and she was unable to provide any details on the duration or what it felt like. She denies cardiac history. She chronically has some mild bilaterally swelling of her ankles, but does not have a reported history of heart failure. She denies any shortness of breath. She currently is pain-free. She does drink alcohol regularly. She received 324 mg aspirin by EMS. She also received her home blood pressure medications this morning Review of Systems Constitutional: denies: Fever Nose: denies: Rhinorrhea / runny nose Cardiac: reports: Chest pain / pressure Respiratory: denies: Dyspnea GI: denies: Abdominal Pain : denies: Dysuria Musculoskeletal: denies: Neck pain Neurologic: denies: Generalized weakness PD PAST MEDICAL HISTORY - Past Medical History Cardiovascular: Hypertension, High cholesterol Respiratory: None Endocrine/Autoimmune: None : None HEENT: Other Psych: None Musculoskeletal: Osteoarthritis Derm: Herpes zoster, Rosacea - Past Surgical History Past Surgical History: 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 HEENT: Tonsil/Adenoidectomy - Present Medications Home Medications: Ambulatory Orders Medication Instructions Recorded Confirmed amLODIPine [Norvasc] 5 mg PO DAILY 08/25/16 09/04/18 Aspirin [Alfred] 325 mg PO ONCE #30 tablet 08/28/16 09/04/18 Lisinopril 09/04/18 Potassium Chloride [K-Dur] 20 meq PO BID #20 tablet 09/04/18 - Allergies Allergies/Adverse Reactions: Allergies Allergy/AdvReac Type Severity Reaction Status Date / Time No Known Drug Allergies Allergy Verified 03/18/19 09:56 - Social History Does the pt smoke?: No Smoking Status: Never smoker Does the pt drink ETOH?: Yes Does the pt have substance abuse?: No - Immunizations Immunizations are current?: Yes - POLST Patient has POLST: Yes PD ED PE NORMAL - Vitals Vital signs reviewed: Yes - General General: Alert and oriented X 3, No acute distress - HEENT HEENT: Atraumatic, PERRL - Neck Neck: Supple, no meningeal sign - Cardiac Cardiac: RRR - Respiratory Respiratory: No respiratory distress, Clear bilaterally - Abdomen Abdomen: Soft, Non tender, Non distended - Derm Derm: Warm and dry - Extremities Extremities: No deformity - Neuro Neuro: Other (Alert, oriented to self, place, event, does not know the month, states it is January, knows it is 2018. Able to hold on normal conversation, 5 out of 5 strength in the upper and lower extremities, cranial nerves are intact with no facial droop or slurred speech, no dysmetria) - Psych Psych: Normal mood, Normal affect Results - Vitals Vitals: Vital Signs - 24 hr 03/18/19 03/18/19 03/18/19 09:53 10:03 11:44 Temperature 36.4 C L 36.6 C Heart Rate 92 86 Respiratory 16 12 Rate Blood Pressure 180/90 H 181/89 H Blood Pressure 171/87 H [Left] O2 Saturation 96 98 03/18/19 13:21 Temperature Heart Rate 83 Respiratory 14 Rate Blood Pressure 180/93 H Blood Pressure [Left] O2 Saturation 95 Oxygen O2 Source [With Activity] Room air O2 Source Room air - EKG (time done) 9:52 Other comments: Other comments (Rate 86, rhythm sinus, there is no ST segment elevation or depression, no abnormal T wave inversions. 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 Intervals are within normal limits ) - Labs Labs: Laboratory Tests 03/18/19 03/18/19 03/18/19 10:07 10:07 10:07 WBC RBC Hgb Hct MCV MCH MCHC RDW Plt Count MPV Neut # (Auto) Lymph # (Auto) [place] # (Auto) Eos # (Auto) Baso # (Auto) Absolute Nucleated RBC Nucleated RBC % PT 11.4 INR 1.0 Sodium 140 Potassium 4.2 Chloride 102 Carbon Dioxide 30 Anion Gap 8.0 BUN 14 Creatinine 0.9 Estimated GFR (MDRD) 60 L Glucose 95 Calcium 9.0 Total Bilirubin 0.9 AST 22 ALT 15 Alkaline Phosphatase 62 Troponin I High Sens 4.5 B-Natriuretic Peptide Total Protein 7.1 Albumin 4.0 Globulin 3.1 Albumin/Globulin Ratio 1.3 Lipase 41 Ethyl Alcohol < 5.0 03/18/19 03/18/19 03/18/19 10:07 10:09 12:13 WBC 6.9 RBC 5.08 Hgb 15.8 Hct 47.7 H MCV 93.9 MCH 31.1 H MCHC 33.1 RDW 12.9 Plt Count 218 MPV 10.4 Neut # (Auto) 4.4 Lymph # (Auto) 1.4 L [place] # (Auto) 0.6 Eos # (Auto) 0.4 Baso # (Auto) 0.1 Absolute Nucleated RBC 0.00 Nucleated RBC % 0.0 PT INR Sodium Potassium Chloride Carbon Dioxide Anion Gap BUN Creatinine Estimated GFR (MDRD) Glucose Calcium Total Bilirubin AST ALT Alkaline Phosphatase Troponin I High Sens 4.8 B-Natriuretic Peptide 23 Total Protein Albumin Globulin Albumin/Globulin Ratio Lipase Ethyl Alcohol - Rads (name of study) CXR Radiology: Other (No acute cardiopulmonary abnormality) PD MEDICAL DECISION MAKING - ED course Complexity details: considered differential (ACS, PTX, PNA, MSK chest pain, gastritis, PE) ED course: Pt is well appearing and pain free on arrival. Her EKG shows likely old infarts but no convincing signs of acute ischemia. Chest XR unremarkable. 2 troponins are both negative. The quick resolution of her pain makes PE extremely unlikely. On repeat evaluation patient continues to be well-appearing and chest pain free, and is eager to go home. She does not want to stay in the hospital and appears low risk for ACS given her brief resolved symptoms and work up at this time. I discussed strict return precautions and close follow up including on her blood pressure, which is elevated today, and patient was discharged home. Departure - Departure Disposition: 01 Home, Self Care Clinical Impression: Chest pain Qualifiers: Chest pain type: unspecified Qualified Code(s): R07.9 - Chest pain, unspecified Condition: Good Instructions: ED Chest Pain Atypical Unkn Cause Follow-Up: Jayashree Rodriguez PA [Primary Care Provider] - Comments: You were seen today for some chest pain which has resolved. Please follow-up with your primary care provider on this. Your labs are reassuring today, but if you are having any repeated chest pain, shortness of breath, confusion, or any other concerning symptoms return to the emergency department. Discharge Date/Time: 03/18/19 13:26
[2019-03-18 10:11] LABS: BASOPHILS # (AUTO) 0.1 10^3/uL (0.0-0.1); BASOPHILS % (AUTO) 0.9 %; EOSINOPHILS # (AUTO) 0.4 10^3/uL (0.0-0.7); EOSINOPHILS % (AUTO) 5.5 %; HGB - HEMOGLOBIN 15.8 g/dL (12.0-16.0); LYMPHOCYTES # (AUTO) 1.4 10^3/uL (1.5-3.5); LYMPHOCYTES % (AUTO) 20.8 %; MEAN CORPUSCULAR HEMOGLOBIN 31.1 pg (27.0-31.0); MEAN CORPUSCULAR HGB CONC 33.1 g/dL (32.0-36.0); MEAN CORPUSCULAR VOLUME 93.9 fL (81.0-99.0); MEAN PLATELET VOLUME 10.4 fL (7.9-10.8); MONOCYTES # (AUTO) 0.6 10^3/uL (0.0-1.0); MONOCYTES % (AUTO) 8.5 %; NEUTROPHILS # (AUTO) 4.4 10^3/uL (1.5-6.6); NEUTROPHILS % (AUTO) 63.9 %; PLT - PLATELET COUNT 218 10^3/uL (130-450); RED BLOOD COUNT 5.08 10^6/uL (4.20-5.40); RED CELL DISTRIBUTION WIDTH 12.9 % (12.0-15.0); WHITE BLOOD COUNT 6.9 x10^3/uL (4.8-10.8)
[2019-03-18 10:16] LABS: PT - PROTHROMBIN TIME 11.4 secs (9.9-12.6)
[2019-03-18 10:24] LABS: ALBUMIN/GLOBULIN RATIO 1.3 (1.0-2.2); ALKALINE PHOSPHATASE 62 IU/L (42-121); ALT ALANINE AMINOTRANSFERASE 15 IU/L (10-60); AST ASPARTATE AMINOTRANSFERASE 22 IU/L (10-42); BILIRUBIN,TOTAL 0.9 mg/dL (0.2-1.0); BUN - BLOOD UREA NITROGEN 14 mg/dL (6-20); CARBON DIOXIDE - CO2 30 mmol/L (21-32); CHLORIDE 102 mmol/L (101-111); CREATININE 0.9 mg/dL (0.4-1.0); GFR - MDRD 60 (>89); GLUCOSE 95 mg/dL (70-100); LIPASE 41 U/L (22-51); SODIUM 140 mmol/L (135-145); TOTAL PROTEIN 7.1 g/dL (6.7-8.2)
--- NOTE | 2019-03-18 11:03 | XRAY Report ---
Reason: Chest pain Procedure Date: 03/18/2019 Accession Number: [id number] / [id number] Procedure: XR - Chest 2 View X-Ray CPT Code: 70466 Final Report FULL RESULT: EXAM: CHEST RADIOGRAPHY EXAM DATE: 03/18/2019 10:31 AM. CLINICAL HISTORY: Chest pain. COMPARISON: CHEST 2 VIEW 06/26/2018 11:07 AM. TECHNIQUE: 2 views. FINDINGS: Lungs/Pleura: No focal opacities evident. No pleural effusion. No pneumothorax. Normal volumes. Mediastinum: Cardiac silhouette size is within normal limits. There is still mildly tortuous contour of the descending thoracic aorta. There is mild atherosclerotic calcification of the aortic arch. Other: Moderate anterior wedge compression deformity of a lower thoracic vertebral body, probably T12, is unchanged compared to 06/26/2018. There are old healed fracture deformity of the left lateral eighth and ninth ribs. No acute displaced fracture visualized. There are mild degenerative disk changes of the thoracic spine. There are surgical clips in the left axilla. IMPRESSION: No acute cardiopulmonary abnormality. RADIA
[2019-03-18 13:22] VITALS: BP 180/93
== END 2019-03-18 13:26 | disposition home or self-care (01) ==
LOC: EDUNIT# → ED 09:46
DX: R07.9 Chest pain, unspecified (principal); I10 Essential (primary) hypertension; I25.2 Old myocardial infarction; Z79.82 Long term (current) use of aspirin
CPT/HCPCS: 36415; 71046; 80053; 80320; 83690; 83880; 84484; 85025; 85610; 93005; 99284

== ENCOUNTER 2019-09-04 00:02 | Outpatient (CLI) | payer MEDICARE, OTHER | END 2019-09-04 00:03 | disposition critical access hospital (66) | LOC: EMS 00:02 | PROVIDERS: ATTEND Surgery | DX: S89.91XA Unspecified injury of right lower leg, initial encounter (principal); W18.30XA Fall on same level, unspecified, initial encounter; Y92.091 Bathroom in other non-institutional residence as the place of occurrence of the external cause | CPT/HCPCS: A0425; A0429 ==

== ENCOUNTER 2019-09-04 00:43 | Emergency (ER) | payer MEDICARE, OTHER ==
[2019-09-04 01:59] LABS: BILIRUBIN,URINE NEGATIVE (NEGATIVE); GLUCOSE, URINE (UA) NEGATIVE (NEGATIVE); KETONES,URINE (UA) NEGATIVE (NEGATIVE); LEUKOCYTE ESTERASE, URINE NEGATIVE (NEGATIVE); NITRITE,URINE POSITIVE (NEGATIVE); OCCULT BLOOD,URINE NEGATIVE (NEGATIVE); PH,URINE 6.5 PH (5.0-7.5); PROTEIN,URINE NEGATIVE (NEGATIVE); UROBILINOGEN,URINE 0.2 (NORMAL) E.U./dL (NORMAL)
[2019-09-04 02:02] LABS: CLARITY,URINE CLEAR (CLEAR)
[2019-09-04 02:05] LABS: BACTERIA,URINE Many /HPF (None Seen); RBC,URINE 0-5 /HPF (0-5); SQUAMOUS EPITHELIAL CELL,UR FEW Squamous (<= Few)
--- NOTE | 2019-09-04 03:05 | ED Physician Documentation ---
PD HPI LOWER EXT INJURY - Stated complaint Stated Complaint: FELL, KNEE INJURY - Chief complaint Chief Complaint: Ext Problem - History obtained from History obtained from: Patient - History of Present Illness PD HPI LOW EXT INJURY LOCATION: Right, Knee Type of injury: Other (unknown) Where injury occurred: Home Timing - details: Abrupt onset Improved by: Rest Worsened by: Moving, Palpating Associated symptoms: Swelling Contributing factors: No: Anticoagulated Similar symptoms before: Has not had sx before - Additional information Additional information: [facility] from [place]. 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 It is unknown why she fell or how long she was on the floor. Patient tells me she has no recollection of incident. She only c/o right knee pain. Review of Systems Cardiac: reports: Reviewed and negative Respiratory: reports: Reviewed and negative GI: reports: Reviewed and negative Musculoskeletal: reports: Joint pain (right knee), Joint swelling (right knee), Pain with weight bearing. 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 HEENT: Tonsil/Adenoidectomy - Present Medications Home Medications: Ambulatory Orders Medication Instructions Recorded Confirmed amLODIPine [Norvasc] 5 mg PO DAILY 08/25/16 09/04/19 lisinopriL [Lisinopril] 10 mg PO DAILY 09/04/18 09/04/19 Aspirin [Alfred] 81 mg PO DAILY 09/04/19 09/04/19 Calcium Carbonate 1,000 mg PO BID 09/04/19 09/04/19 Cholecalciferol [Vitamin D3] 2,000 unit PO DAILY 09/04/19 09/04/19 HYDROcod/ACETAM 5/325 [[place] 5/325] 1 ea PO Q6H PRN #10 tablet 09/04/19 Nitrofurantoin Monohyd/M-Cryst 100 mg PO BID #14 capsule 09/04/19 [Macrobid 100 mg Capsule] Potassium Chloride [K-Dur] 20 meq PO DAILY 09/04/19 09/04/19 Spironolactone 25 mg PO DAILY 09/04/19 09/04/19 - Allergies Allergies/Adverse Reactions: Allergies Allergy/AdvReac Type Severity Reaction Status Date / Time No Known Drug Allergies Allergy Verified 09/04/19 00:51 - Social History Does the pt smoke?: No Smoking Status: Never smoker Does the pt drink ETOH?: Yes Does the pt have substance abuse?: No - Immunizations Immunizations are current?: Yes - POLST Patient has POLST: Yes PD ED PE NORMAL - Vitals Vital signs reviewed: Yes - General General: Alert and oriented X 3 (AAOx2 ), No acute distress, Well developed/nourished - HEENT HEENT: Atraumatic, PERRL, EOMI, Moist mucous membranes - Neck Neck: No bony TTP - Cardiac Cardiac: RRR, No murmur - Respiratory Respiratory: No respiratory distress, Clear bilaterally - Abdomen Abdomen: Soft, Non tender PD ED PE EXPANDED - Extremities Extremities: Tenderness, Limited ROM, Swelling, Right knee, Pedal Pulses Present, Sensory intact Results - Vitals Vitals: Vital Signs - 24 hr 09/04/19 10:17 Heart Rate 88 Blood Pressure 175/98 H O2 Saturation 98 Oxygen O2 Source [] Room air O2 Source Room air - Labs Labs: Microbiology 09/04/19 01:45 Urine Culture - Preliminary Urine,Clean Catch CULTURE IN PROGRESS. RESULTS TO FOLLOW. Laboratory Tests 09/04/19 09/04/19 09/04/19 01:45 04:15 04:15 WBC 10.0 RBC 4.99 Hgb 15.9 Hct 47.5 H MCV 95.2 MCH 31.9 H MCHC 33.5 RDW 12.3 Plt Count 241 MPV 9.5 Neut # (Auto) 8.0 H Lymph # (Auto) 1.0 L [place] # (Auto) 0.9 Eos # (Auto) 0.0 Baso # (Auto) 0.1 Absolute Nucleated RBC 0.00 Nucleated RBC % 0.0 Sodium 139 Potassium 3.6 Chloride 101 Carbon Dioxide 20 L Anion Gap 18.0 H BUN 8 Creatinine 0.7 Estimated GFR (MDRD) 80 L Glucose 111 H Calcium 8.9 Urine Color YELLOW Urine Clarity CLEAR Urine pH 6.5 Ur Specific Means 1.015 Urine Protein NEGATIVE Urine Glucose (UA) NEGATIVE Urine Ketones NEGATIVE Urine Occult Blood NEGATIVE Urine Nitrite POSITIVE H Urine Bilirubin NEGATIVE Urine Urobilinogen 0.2 (NORMAL) Ur Leukocyte Esterase NEGATIVE Urine RBC 0-5 Urine WBC 0-3 Ur Squamous Epith Cells FEW Squamous Urine Bacteria Many H Ur Microscopic Review INDICATED Urine Culture Comments INDICATED Ethyl Alcohol 09/04/19 05:15 WBC RBC Hgb Hct MCV MCH MCHC RDW Plt Count MPV Neut # (Auto) Lymph # (Auto) [place] # (Auto) Eos # (Auto) Baso # (Auto) Absolute Nucleated RBC Nucleated RBC % Sodium Potassium Chloride Carbon Dioxide Anion Gap BUN Creatinine Estimated GFR (MDRD) Glucose Calcium Urine Color Urine Clarity Urine pH Ur Specific Means Urine Protein Urine Glucose (UA) Urine Ketones Urine Occult Blood Urine Nitrite Urine Bilirubin Urine Urobilinogen Ur Leukocyte Esterase Urine RBC Urine WBC Ur Squamous Epith Cells Urine Bacteria Ur Microscopic Review Urine Culture Comments Ethyl Alcohol 45.3 - Rads (name of study) right knee xrays Radiology: Prelim report reviewed, See rad report PD MEDICAL DECISION MAKING - ED course Complexity details: reviewed results, re-evaluated patient, considered differential, d/w patient, d/w family (RN d/w patient's daughter), d/w technology consultant ED course: after xrays returned, I contacted Dr. Ying (orthopedic surgery sales administration manager at ; n o ortho sales administration manager at time of xray results at [facility]). Dr. Ying recommends knee immobilizer and f/u outpatient setting. During ED stay, patient was confused at times and frequently trying to get out of bed to use bathroom despite being repeatedly reminded that she has a fracture of her right patella and cannot ambulate without the knee immobilizer and without assistance. She removed the immobilizer a few times and became angry and argumentative with staff at times. I decided to hold patient in ED until [facility] orthopedic surgery will be available at 7 AM. She thus spent several hours in ED. I then discussed the case with Dr. Hanley when he went on duty at 7 AM. He also recommends knee immobilizer, patient does not have to be strict non-weight bearing, but needs to keep the knee in the immobilizer or else a splint (keeping the knee in extension), and use a walker. He says consideration for surgery would involve several factors including that it would be considered an elective surgery, which is not an option currently at [facility] due to COVID. The ED RN then made phone calls to the patient's daughter and [facility] and was able to coordinate a plan to send patient back to [facility] with the above instructions (minimize weight-bearing but does not have to be non-weight bearing, must keep knee immobilizer on, must use walker, and f/u with orthopedics). Departure - Departure Disposition: 01 Home, Self Care Clinical Impression: UTI (urinary tract infection) Qualifiers: Urinary tract infection type: acute cystitis Hematuria presence: without hematuria Qualified Code(s): N30.00 - Acute cystitis without hematuria Patella fracture Qualifiers: Encounter type: initial encounter Fracture type: closed Fracture morphology: transverse Fracture alignment: displaced Laterality: right Qualified Code(s): S82.031A - Displaced transverse fracture of right patella, initial encounter for closed fracture Condition: Good Instructions: ED Immobilizer Knee, ED Fx Patella, ED Walker Use Follow-Up: Emily Ying MD [Physician No Access] - Roge Hanley MD [Provider Admit Priv/Credential] - Within 1 week Prescriptions: HYDROcod/ACETAM 5/325 [[place] 5/325] 1 ea PO Q6H PRN #10 tablet PRN Reason: Pain Nitrofurantoin Monohyd/M-Cryst [Macrobid 100 mg Capsule] 100 mg PO BID #14 capsule Discharge Date/Time: 09/04/19 10:17
--- NOTE | 2019-09-04 03:21 | XRAY Report ---
Reason: fall, pain, tenderness Procedure Date: 09/04/2019 Accession Number: [id number] / [id number] Procedure: XR - Knee 4 View RT CPT Code: Final Report FULL RESULT: EXAM: RIGHT KNEE RADIOGRAPHY EXAM DATE: 09/04/2019 03:01 AM. CLINICAL HISTORY: Fall, pain, tenderness. COMPARISON: None. TECHNIQUE: 4 views. FINDINGS: Bones: Transverse fracture of the patella with separation of the fracture fragments measuring about 8 mm. Joints: No dislocation seen. Small joint effusion. Soft Tissues: Soft tissue swelling. Vascular calcifications. IMPRESSION: 1. Transverse fracture of the patella with approximately 8 mm separation of the fracture fragments. RADIA
[2019-09-04 04:25] LABS: BASOPHILS # (AUTO) 0.1 10^3/uL (0.0-0.1); BASOPHILS % (AUTO) 0.5 %; EOSINOPHILS % (AUTO) 0.4 %; HGB - HEMOGLOBIN 15.9 g/dL (12.0-16.0); LYMPHOCYTES % (AUTO) 10.1 %; MEAN CORPUSCULAR HEMOGLOBIN 31.9 pg (27.0-31.0); MEAN CORPUSCULAR HGB CONC 33.5 g/dL (32.0-36.0); MEAN CORPUSCULAR VOLUME 95.2 fL (81.0-99.0); MEAN PLATELET VOLUME 9.5 fL (7.9-10.8); MONOCYTES # (AUTO) 0.9 10^3/uL (0.0-1.0); MONOCYTES % (AUTO) 8.6 %; NEUTROPHILS % (AUTO) 79.9 %; PLT - PLATELET COUNT 241 10^3/uL (130-450); RED BLOOD COUNT 4.99 10^6/uL (4.20-5.40); RED CELL DISTRIBUTION WIDTH 12.3 % (12.0-15.0)
[2019-09-04 04:34] LABS: CALCIUM 8.9 mg/dL (8.5-10.3); CREATININE 0.7 mg/dL (0.4-1.0)
[2019-09-04] MEDS ORDERED: ACETAMINOPHEN 325 MG TABLET PO STA (08:36)
[2019-09-04] MEDS ORDERED: NITROFURANTOIN MACRO 100 MG CAPSULE PO STA (08:50)
[2019-09-04] MEDS ORDERED: HYDROcod/ACETAM 5/325 MG TABLET PO STA (09:10)
[2019-09-04 10:19] VITALS: BP 175/98
== END 2019-09-04 10:17 | disposition home or self-care (01) ==
LOC: EDUNIT# → ED 00:43
DX: S82.031A Displaced transverse fracture of right patella, initial encounter for closed fracture (principal); W19.XXXA Unspecified fall, initial encounter; Y92.192 Bathroom in other specified residential institution as the place of occurrence of the external cause; N30.00 Acute cystitis without hematuria; I10 Essential (primary) hypertension
CPT/HCPCS: 36415; 73564; 80048; 81001; 85025; 87086; 87181; 99284; A9270; 80320; 81003

== ENCOUNTER 2021-10-27 11:32 | Outpatient (CLI) | payer MEDICARE, OTHER ==
[2021-10-27 15:51] LABS: ALBUMIN 4.1 g/dL (3.2-5.5); ALBUMIN/GLOBULIN RATIO 1.1 (1.0-2.2); CALCIUM 9.6 mg/dL (8.5-10.3); TOTAL PROTEIN 7.7 g/dL (6.7-8.2)
== END 2021-10-27 11:33 | disposition home or self-care (01) ==
LOC: LAB.S 11:32
PROVIDERS: ATTEND Physician Assistant
DX: N18.30 Chronic kidney disease, stage 3 unspecified (principal)
CPT/HCPCS: 36415; 80053

== ENCOUNTER 2022-08-28 18:02 | Outpatient (CLI) | payer MEDICARE, OTHER | END 2022-08-28 18:03 | disposition critical access hospital (66) | LOC: EMS 18:02 | DX: R07.9 Chest pain, unspecified (principal); M79.602 Pain in left arm; I48.91 Unspecified atrial fibrillation | CPT/HCPCS: A0425; A0427 ==

== ENCOUNTER 2022-08-28 18:29 | Emergency (ER) | payer MEDICARE, OTHER ==
[2022-08-28] MEDS ORDERED: MORPHINE 2 MG/ML CARPUJECT IVP STA (18:37)
--- NOTE | 2022-08-28 18:56 | ED Physician Documentation ---
History of Present Illness - Stated complaint Stated Complaint: CP - Chief complaint Chief Complaint: Cardiac - History obtained from History obtained from: Patient, EMS - History of Present Illness Timing: Today Pain level max: 6 Pain level now: 5 - Additonal information Additional information: 87-year-old female with a history of dementia presents to the emergency department with EMS. Reportedly she states that she had chest pain earlier. She states that she occasionally still has pain that feels sharp when she presses on the left side of her chest. She thinks that this is what the pain felt like earlier to. EMS states that she did have an episode of atrial fibrillation with RVR, they did give her 10 mg of diltiazem IV and heart rate decreased. Currently the patient states she only has pain if she presses on her chest. The pain does not radiate anywhere. No history of heart attacks, stents or bypasses. No shortness of breath. No nausea or vomiting. No sweating. Patient currently is otherwise asymptomatic. It sounds as if the pain was approximately 2 hours prior to arrival. 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 HEENT: Tonsil/Adenoidectomy - Present Medications Home Medications: Ambulatory Orders Medication Instructions Recorded Confirmed amLODIPine [Norvasc] 5 mg PO DAILY 08/25/16 09/04/19 lisinopriL [Lisinopril] 10 mg PO DAILY 09/04/18 09/04/19 Aspirin [Alfred] 81 mg PO DAILY 09/04/19 09/04/19 Calcium Carbonate 1,000 mg PO BID 09/04/19 09/04/19 Cholecalciferol [Vitamin D3] 2,000 unit PO DAILY 09/04/19 09/04/19 HYDROcod/ACETAM 5/325 [[place] 5/325] 1 ea PO Q6H PRN #10 tablet 09/04/19 Nitrofurantoin Monohyd/M-Cryst 100 mg PO BID #14 capsule 09/04/19 [Macrobid 100 mg Capsule] Potassium Chloride [K-Dur] 20 meq PO DAILY 09/04/19 09/04/19 Spironolactone 25 mg PO DAILY 09/04/19 09/04/19 - Allergies Allergies/Adverse Reactions: Allergies Allergy/AdvReac Type Severity Reaction Status Date / Time No Known Drug Allergies Allergy Verified 08/28/22 18:37 - Social History Does the pt smoke?: No Smoking Status: Never smoker Does the pt drink ETOH?: Yes Does the pt have substance abuse?: No - Immunizations Immunizations are current?: Yes - POLST Patient has POLST: Yes PD ED PE NORMAL - Vitals Vital signs reviewed: Yes - General General: No acute distress, Other (Alert, pleasant, oriented to person and place. Confused to time) - HEENT HEENT: Atraumatic, PERRL, Moist mucous membranes - Neck Neck: Supple, no meningeal sign, No bony TTP - Cardiac Cardiac: RRR, Strong equal pulses - Respiratory Respiratory: No respiratory distress, Clear bilaterally - Abdomen Abdomen: Soft, Non tender, Non distended - Derm Derm: Warm and dry - Extremities Extremities: No edema, No calf tenderness / cord - Neuro Neuro: Alert and oriented X 3 - Psych Psych: Normal mood, Normal affect - Free text exam Free text exam: Tender to palpation over the left anterior chest wall, reproducing her pain. No crepitus. No ecchymosis. No skin changes. No rash. Results - Vitals Vitals: Vital Signs - 24 hr 08/28/22 08/28/22 18:34 19:40 Temperature 36.9 C Heart Rate 70 94 Respiratory 20 24 Rate Blood Pressure 153/74 H 156/99 H O2 Saturation 98 97 Oxygen O2 Source [] Room air O2 Source Room air - EKG (time done) 1834 EKG releavant findings:: EKG personally interpreted by author of this note. Relevant findings are: Rate: Rate (enter#) (107) Rhythm: Atrial fibrillation, Other (PVC) [place]: Normal QRS: LVH Ischemia: Q waves (III, aVF, V1-3) - Labs Labs: Laboratory Tests 08/28/22 08/28/22 08/28/22 19:03 19:03 19:03 WBC 8.3 RBC 5.84 H Hgb 16.5 H Hct 51.8 H MCV 88.7 MCH 28.3 MCHC 31.9 L RDW 14.0 Plt Count 276 MPV 9.6 Neut # (Auto) 4.8 Lymph # (Auto) 2.4 [place] # (Auto) 0.7 Eos # (Auto) 0.3 Baso # (Auto) 0.1 Absolute Nucleated RBC 0.00 Nucleated RBC % 0.0 Sodium 138 Potassium 2.9 L Chloride 99 L Carbon Dioxide 27 Anion Gap 12.0 BUN 18 Creatinine 0.9 Estimated GFR (MDRD) 59 L Glucose 109 H Calcium 9.4 Total Bilirubin 0.7 AST 22 ALT 15 Alkaline Phosphatase 74 Troponin I High Sens 15.7 H* Total Protein 8.2 Albumin 4.2 Globulin 4.0 Albumin/Globulin Ratio 1.1 Lipase 57 H - Rads (name of study) Chest x-ray Relevant Findings:: Final report received, See rad report PD Medical Decision Making - ED course Complexity details: reviewed results, re-evaluated patient, considered differential (No ST elevation [place], no aortic dissection, no PE, no tension pneumothorax, no aortic aneurysm), d/w patient ED course: Patient with atypical chest pain. Appears to be tenderness to palpation across the anterior chest wall. She does not want to stay for a second troponin. Otherwise her CBC does not show any significant acute abnormalities. Her chemistry is positive for mild hypokalemia, 2.9. High-sensitivity troponin is 15.7. Given the patient's atypical symptoms, and her increasing desire to go home, we will allow her to go home at this time. She is DNR and states she wo uld not want any interventions for any heart problems. We will have her continue her current medical therapy and follow-up with her doctor. This document was made in part using voice recognition software. While efforts are made to proofread this document, sound alike and grammatical errors may occur. Departure - Departure Disposition: 01 Home, Self Care Clinical Impression: Chest wall pain, Hypokalemia Condition: Good Instructions: ED Chest Pain Atypical Unkn Cause Follow-Up: your,doctor in 1 week [Other] Comments: Please follow-up with your doctor for further care. I would recommend Motrin or Tylenol as needed for the chest wall pain. Your laboratory testing did show a mildly low potassium level. You were given oral potassium today. Please follow- up with your doctor to have your potassium rechecked next week. Please return if you worsen. Discharge Date/Time: 08/28/22 21:35
[2022-08-28 19:10] LABS: BASOPHILS # (AUTO) 0.1 10^3/uL (0.0-0.1); BASOPHILS % (AUTO) 0.8 %; EOSINOPHILS # (AUTO) 0.3 10^3/uL (0.0-0.7); EOSINOPHILS % (AUTO) 3.3 %; HCT - HEMATOCRIT 51.8 % (37.0-47.0); HGB - HEMOGLOBIN 16.5 g/dL (12.0-16.0); LYMPHOCYTES # (AUTO) 2.4 10^3/uL (1.5-3.5); LYMPHOCYTES % (AUTO) 29.2 %; MEAN CORPUSCULAR HEMOGLOBIN 28.3 pg (27.0-31.0); MEAN CORPUSCULAR HGB CONC 31.9 g/dL (32.0-36.0); MEAN CORPUSCULAR VOLUME 88.7 fL (81.0-99.0); MEAN PLATELET VOLUME 9.6 fL (7.9-10.8); MONOCYTES # (AUTO) 0.7 10^3/uL (0.0-1.0); MONOCYTES % (AUTO) 8.5 %; NEUTROPHILS # (AUTO) 4.8 10^3/uL (1.5-6.6); PLT - PLATELET COUNT 276 10^3/uL (130-450); RED BLOOD COUNT 5.84 10^6/uL (4.20-5.40); WHITE BLOOD COUNT 8.3 x10^3/uL (4.8-10.8)
[2022-08-28 19:22] LABS: ALBUMIN 4.2 g/dL (3.2-5.5); ALBUMIN/GLOBULIN RATIO 1.1 (1.0-2.2); BILIRUBIN,TOTAL 0.7 mg/dL (0.2-1.0); CALCIUM 9.4 mg/dL (8.5-10.3); CREATININE 0.9 mg/dL (0.4-1.0); POTASSIUM 2.9 mmol/L (3.5-5.0); TOTAL PROTEIN 8.2 g/dL (6.7-8.2)
[2022-08-28] MEDS ORDERED: POTASSIUM CHLORIDE 20 MEQ TABLET PO STA (19:33)
[2022-08-28 19:42] VITALS: BP 156/99
--- NOTE | 2022-08-28 19:51 | XRAY Report ---
PROCEDURE: Chest 1 View X-Ray INDICATIONS: Chest Pain TECHNIQUE: One view of the chest was acquired. COMPARISON: 03/18/2019 FINDINGS: Surgical changes and devices: None. Lungs and pleura: No consolidation, pleural effusion, or pneumothorax. Minimal left basilar opacitie s present Mediastinum: Cardiac silhouette is mildly enlarged. Bones and chest wall: No suspicious bony lesions. Overlying soft tissues appear unremarkable. IMPRESSION: Cardiac silhouette is enlarged without definite evidence of pulmonary vascular congestion. Minimal left basilar opacity, possibly atelectasis, aspiration or pneumonia difficult to exclude. Reviewed by: Tanner Pka MD on 08/28/2022 7:49 PM PDT Approved by: Tanner Pak MD on 08/28/2022 7:49 PM PDT Station ID: [id number]
== END 2022-08-28 21:35 | disposition home or self-care (01) ==
LOC: EDUNIT# → ED 18:29
DX: R07.89 Other chest pain (principal); E87.6 Hypokalemia; F03.90 Unspecified dementia, unspecified severity, without behavioral disturbance, psychotic disturbance, mood disturbance, and anxiety; I10 Essential (primary) hypertension; E78.00 Pure hypercholesterolemia, unspecified; Z79.899 Other long term (current) drug therapy; Z79.82 Long term (current) use of aspirin
CPT/HCPCS: 36415; 71045; 80053; 83690; 84484; 85025; 93005; 96374; 99283; 99284; A9270

== ENCOUNTER 2022-08-28 20:57 | Outpatient (CLI) | payer MEDICARE, OTHER | END 2022-08-28 20:58 | disposition home or self-care (01) | LOC: EMS 20:57 | PROVIDERS: ATTEND Emergency Medicine | DX: R07.9 Chest pain, unspecified (principal); R41.0 Disorientation, unspecified; F03.90 Unspecified dementia, unspecified severity, without behavioral disturbance, psychotic disturbance, mood disturbance, and anxiety | CPT/HCPCS: A0425; A0428 ==